=== PATIENT | female | born 1940 | race Two or more races ===

== ENCOUNTER 2025-06-13 13:47 | Inpatient (IN) | payer OTHER ==
[~2025-06-13] VITALS: Ht 152.4 cm; Wt 45.8 kg
[2025-06-13] MEDS ORDERED: ZESTORETIC 10-1 EACH PO (15:18)
[2025-06-13] MEDS ORDERED: PLAVIX75 MG PO (15:18)
[2025-06-13] MEDS ORDERED: CARVEDILOL12.5 MG (15:19)
[2025-06-13] MEDS ORDERED: METFORMIN HCL500 M3 PO (15:19)
[2025-06-13] MEDS ORDERED: ASPIRIN 325 MG TABLET.EC PO STA (15:25)
[2025-06-13] MEDS ORDERED: ACETAMINOPHEN 500 MG GEL..CAP PO ONE (16:13)
[2025-06-13] MEDS ORDERED: ASPIRIN 325 MG TABLET.EC PO ONE (16:13)
--- NOTE | 2025-06-13 16:42 | NUR ---
SE RECIBE PACIENTE FEMENINA ALERTA Y ORIENTADA EN PERSONA, SE COLOCA EN EL AREA DE CRITICO EN LA CAMA #1 CON BARANDAS ELEVADAS. SE CONECTA A MONITOR CARDIACO, OXIEMTRIA DE PULSO Y CANULA NASAL A 3LT/MIN. SE CANALIZA EN BRAZO DERECHO CY SE UTILIZA ANGIO #20 Y SE LE COLOCA UN H/L PATENTE EULOGIO DE EDEMA Y ENROJECIMINETO. SE LE NOLBERTO LAS MUETRAS Y SE LE DA A SADE LOS MEDICAMENTOS TICO LA ORDEN MEDICA. SE LE INSERTA SCHWAB #16 Y SE UTILIZAN MEDIDAS ASEPTICAS Y ESTERILES Y SE LE REALIZA PLACA PORTABLE. SE OBSERVA POR CAMBIOS.
[2025-06-13 16:43] LABS: INR 1.04
[2025-06-13 16:45] LABS: ALT/SGPT 63 U/L (12-78); AST/SGOT 34 U/L (15-37)
[2025-06-13 16:52] LABS: ALT/SGPT 64.0 U/L (12-78); AST/SGOT 33.0 U/L (15-37); BUN CREA RATIO 26.0 (7.0-25.0); CREATININE SERUM 0.76 mg/dL (0.55-1.02); GFR 72.68; GLUCOSE FASTING 124.0 mg/dL (65-100); LDH 358.0 U/L (84-246); OSMOLALITY SERUM 272.0 MOSM/KG (275-295); PHOSPHOKINASE CREATININE 169.0 U/L (26-192)
[2025-06-13 17:05] LABS: BASO % 0.1 % (0.1-1.2); EOS # 0.00 (0.04-0.54); EOS % 0.0 % (0.7-7.0); LYMPH # 0.94 (1.18-3.74); LYMPH % 5.7 % (19.3-53.1); MEAN PLATELET VOLUME 9.50 fl (9.4-12.4); MONO # 0.77 (0.24-0.82); MONO % 4.7 % (4.7-12.5); NEUT # 14.70 (1.56-6.13); NEUT % 89.2 % (34.0-71.1); RED CELL DISTRIBUTION WIDTH 11.9 % (11.6-14.4)
[2025-06-13 17:24] LABS: ALT/SGPT 59.0 U/L (12-78); AST/SGOT 27.0 U/L (15-37); BILIRUBIN TOTAL 0.62 mg/dL (0.3-1.2); BILIRUBIN,CONJUGATED 0.2 mg/dL (0.0-0.2); BUN CREA RATIO 22.0 (7.0-25.0); CREATININE SERUM 0.85 mg/dL (0.55-1.02); GFR 63.87; GLOBULINA 3.6 G/DL (2.4-3.5); GLUCOSE FASTING 131.0 mg/dL (65-100); OSMOLALITY SERUM 272.0 MOSM/KG (275-295)
[2025-06-13 17:35] LABS: URINE APPEARANCE Clear; URINE BILIRRUBIN Negative (NEGATIVE); URINE BLOOD Moderate; URINE COLOR Yellow; URINE GLUCOSE Negative (NEGATIVE); URINE KETONE Negative (NEGATIVE); URINE LEUKOCYTE Negative; URINE NITRATE Negative; URINE UROBILINOGEN 0.2 E.U./dl
[2025-06-13 17:40] LABS: URINE BACTERIA 4.7 uL (0.0-1933); URINE EPITHELIAL CELLS 1.6 uL (0.0-38.8); URINE RBC 31.6 uL (0.0-20.8); URINE WBC 2.3 uL (0.0-23.2)
[2025-06-13 17:56] LABS: URINE CAST 0.43 uL (0.0-1.40); URINE PROTEIN 100 (NEGATIVE)
[2025-06-13] MEDS ORDERED: 0.9 % SODIUM CHLORIDE 1,000 ML IV ONE (18:00)
[2025-06-13] MEDS ORDERED: FAMOtidine 10 MG/ML (4ML VIAL) IV ONE (18:00)
[2025-06-13] MEDS ORDERED: PIPERACILLIN/TAZOBACTAM SODIUM 3.375 GM VIAL IV ONE ×2 (18:00→18:02)
[2025-06-13] MEDS ORDERED: KETOROLAC TROMETHAMINE 30 MG VIAL IV ONE (18:00)
[2025-06-13] MEDS ORDERED: FAMOTIDINE/PF 20 MG/2 ML VIAL ONE (18:02)
[2025-06-13] MEDS ORDERED: KETOROLAC TROMETHAMINE 30 MG VIAL ONE (18:02)
[2025-06-13] MEDS ORDERED: CEFTRIAXONE SODIUM 2,000 MG in 0.9 % SODIUM CHLORIDE 100 ML IV SCH (20:08)
[2025-06-13] MEDS ORDERED: DEXTROSE 50 % IN WATER 0.5 G/ML DISP.SYRIN IV PRN (20:15)
[2025-06-13] MEDS ORDERED: ACETAMINOPHEN 500 MG GEL..CAP PO PRN (20:15)
[2025-06-13] MEDS ORDERED: ENALAPRILAT DIHYDRATE 1.25 MG/ML VIAL IV PRN (20:15)
[2025-06-13] MEDS ORDERED: INSULIN LISPRO 1,000 UNIT/10 ML UNITS SUBCUTANEO PRN (20:15)
[2025-06-13] MEDS ORDERED: 0.9 % SODIUM CHLORIDE 1,000 ML IV SCH (20:15)
[2025-06-13] MEDS ORDERED: ONDANSETRON HCL 4 MG in 0.9 % SODIUM CHLORIDE 50 ML IV PRN (20:15)
[2025-06-13 20:37] VITALS: BP 129/53
[2025-06-13] MEDS ORDERED: CEFTRIAXONE SODIUM 2,000 MG VIAL ONE (20:44)
[2025-06-13] MEDS ORDERED: CARVEDILOL 12.5 MG TABLET PO SCH (21:00)
[2025-06-13 21:43] LABS: INR 1.1
[2025-06-13 23:47] VITALS: BP 111/69; O2SAT 100
[2025-06-14 01:57] VITALS: BP 131/67; O2SAT 98
[2025-06-14 06:41] LABS: ALT/SGPT 46.0 U/L (12-78); AST/SGOT 23.0 U/L (15-37); BILIRUBIN TOTAL 0.43 mg/dL (0.3-1.2); BILIRUBIN,CONJUGATED 0.13 mg/dL (0.0-0.2)
[2025-06-14 08:00] VITALS: BP 145/69; O2SAT 95
[2025-06-14] MEDS ORDERED: ENOXAPARIN SODIUM 40 MG/0.4 ML SYRINGE SUBCUTANEO SCH (09:00)
[2025-06-14] MEDS ORDERED: AMLODIPINE BESYLATE 2.5 MG TABLET PO NR (13:00)
[2025-06-14] MEDS ORDERED: DONEPEZIL HCL 10 MG TABLET PO SCH (17:00)
[2025-06-14] MEDS ORDERED: MEMANTINE HCL 10 MG TABLET PO SCH (17:00)
[2025-06-14 17:05] VITALS: BP 130/70; O2SAT 96
[2025-06-15 00:51] VITALS: BP 128/58; O2SAT 95
[2025-06-15 06:17] LABS: BASO % 0.2 % (0.1-1.2); EOS # 0.04 (0.04-0.54); EOS % 0.3 % (0.7-7.0); LYMPH # 1.63 (1.18-3.74); LYMPH % 11.1 % (19.3-53.1); MEAN PLATELET VOLUME 10.50 fl (9.4-12.4); MONO # 1.72 (0.24-0.82); MONO % 11.7 % (4.7-12.5); NEUT # 11.19 (1.56-6.13); NEUT % 76.3 % (34.0-71.1); RED CELL DISTRIBUTION WIDTH 12.4 % (11.6-14.4)
[2025-06-15 08:00] VITALS: BP 148/71; O2SAT 96
[2025-06-15] MEDS ORDERED: AMLODIPINE BESYLATE 2.5 MG TABLET PO SCH (09:00)
[2025-06-15 15:30] VITALS: BP 121/58; O2SAT 96
[2025-06-15] MEDS ORDERED: FAMOTIDINE/PF 20 MG/2 ML VIAL IV SCH (17:00)
[2025-06-16 07:01] LABS: BASO % 0.3 % (0.1-1.2); EOS # 0.07 (0.04-0.54); EOS % 0.8 % (0.7-7.0); LYMPH # 1.42 (1.18-3.74); LYMPH % 16.1 % (19.3-53.1); MEAN PLATELET VOLUME 10.20 fl (9.4-12.4); MONO # 1.32 (0.24-0.82); NEUT # 5.94 (1.56-6.13); NEUT % 67.3 % (34.0-71.1); RED CELL DISTRIBUTION WIDTH 12.2 % (11.6-14.4)
[2025-06-16 07:03] LABS: MONO % 15.0 % (4.7-12.5)
[2025-06-16 07:36] LABS: BUN CREA RATIO 27.0 (7.0-25.0); CREATININE SERUM 0.59 mg/dL (0.55-1.02); GFR 97.34; GLUCOSE FASTING 81.0 mg/dL (65-100); OSMOLALITY SERUM 281.0 MOSM/KG (275-295)
[2025-06-16 08:00] VITALS: BP 149/70; O2SAT 96
== END 2025-06-16 14:54 | disposition home or self-care (01) | DRG 445 ==
LOC: ER 14:00 → SURG 20:32
PROVIDERS: Emergency Medicine; General Practice; Student in an Organized Health Care Education/Training Program; ADMIT Internal Medicine; ATTEND Internal Medicine
PROC: BW21YZZ Computerized Tomography (CT Scan) of Abdomen and Pelvis using Other Contrast (ICD-10-PCS; principal; 2025-06-13)
PROC: BT43ZZZ Ultrasonography of Bilateral Kidneys (ICD-10-PCS; 2025-06-13)
PROC: 4A12X4Z Monitoring of Cardiac Electrical Activity, External Approach (ICD-10-PCS; 2025-06-13)
PROC: B246ZZZ Ultrasonography of Right and Left Heart (ICD-10-PCS; 2025-06-15)
DX: K80.00 Calculus of gallbladder with acute cholecystitis without obstruction (principal); R65.10 Systemic inflammatory response syndrome (SIRS) of non-infectious origin without acute organ dysfunction; K29.70 Gastritis, unspecified, without bleeding; K57.90 Diverticulosis of intestine, part unspecified, without perforation or abscess without bleeding; I11.9 Hypertensive heart disease without heart failure; E11.9 Type 2 diabetes mellitus without complications; G30.8 Other Alzheimer's disease; F02.80 Dementia in other diseases classified elsewhere, unspecified severity, without behavioral disturbance, psychotic disturbance, mood disturbance, and anxiety; Z79.84 Long term (current) use of oral hypoglycemic drugs; Z95.2 Presence of prosthetic heart valve